=== PATIENT | female | born 1985 | race Two or more races ===

== ENCOUNTER 2020-05-01 15:20 | Emergency (ER) | payer OTHER ==
[~2020-05-01] VITALS: Ht 154.9 cm; Wt 86.2 kg
[2020-05-01 16:13] LABS: Eosinophils # (auto) 0.4 10 ^3/uL (0-0.8); Hematocrit 42.4 % (36.0-46.0); Monocytes # (auto) 0.4 10 ^3/uL (0-1.3)
[2020-05-01 16:14] LABS: Basophils # (auto) 0.2 10 ^3/uL (0-0.2); Basophils % (auto) 3.1 % (0.0-2.0); Eosinophils % (auto) 5.8 % (0.0-7.0); Hemoglobin 13.8 g/dL (12.2-16.2); Lymphocytes # (auto) 2.5 10 ^3/uL (0.4-5.4); Lymphocytes % (auto) 33.7 % (10.0-50.0); Mean Corpuscular Hemoglobin 26.1 pg (28.0-32.0); Mean Corpuscular Hgb Conc. 32.4 g/dL (32.0-36.0); Mean Corpuscular Volume 80.6 fL (80.0-100.0); Monocytes % (auto) 5.3 % (0.0-12.0); Neutrophils # (auto) 3.9 10 ^3/uL (1.6-8.6); Neutrophils % (auto) 52.1 % (37.0-80.0); Nucleated Red Blood Cells % 0.2 %; Red Blood Cells 5.26 10^6/uL (4.0-5.20); Red Cell Distribution Width 16.7 % (11.8-14.3); White Blood Cell 7.5 10^3/uL (4.4-10.8)
[2020-05-01 16:29] LABS: Albumin 4.2 g/dL (3.4-5.0); Calcium 9.1 mg/dL (8.5-10.1)
[2020-05-01 16:31] LABS: BUN/Creatinine Ratio 18.4
[2020-05-01 16:45] LABS: Bilirubin, Total 0.4 mg/dL (0.2-1.0); Total Protein 8.5 g/dL (6.4-8.2)
== END 2020-05-01 18:50 | disposition home or self-care (01) ==
LOC: EEVIPCON 15:20 → ER 15:20
DX: R10.31 Right lower quadrant pain (principal); R11.2 Nausea with vomiting, unspecified; J45.909 Unspecified asthma, uncomplicated; Z87.11 Personal history of peptic ulcer disease; Z86.2 Personal history of diseases of the blood and blood-forming organs and certain disorders involving the immune mechanism; Z98.890 Other specified postprocedural states; Z88.0 Allergy status to penicillin
CPT/HCPCS: 36415; 74176; 80053; 83690; 85025

== ENCOUNTER → 2021-09-23 | Outpatient (CLI) | payer OTHER ==
[2021-09-23 10:51] LABS: BUN/Creatinine Ratio 13.5; Calcium 8.3 mg/dL (8.5-10.1); Potassium 3.5 mmol/L (3.5-5.1)
== END | disposition home or self-care (01) ==
LOC: CT 09:10
DX: K44.9 Diaphragmatic hernia without obstruction or gangrene (principal); M47.814 Spondylosis without myelopathy or radiculopathy, thoracic region
CPT/HCPCS: 36415; 71275; 80048

== ENCOUNTER → 2021-11-13 | Day surgery (SDC) | payer OTHER ==
[~2021-11-13] VITALS: Ht 160 cm; Wt 104.3 kg
[~2021-11-13] MED LIST: LIDOCAINE VISCOUS 2% 15ML UD MT ONE; LIDOCAINE VISCOUS 2% 15ML UD ONE; MIDAZOLAM HCL 5 MG/ML-1ML VIAL IV ONE; MIDAZOLAM HCL 5 MG/ML-1ML VIAL ONE; diphenhdrAMINE HCL 50 MG/1 ML VL IV ONE; diphenhdrAMINE HCL 50 MG/1 ML VL ONE; fentaNYL CITRATE 100 MCG/2 ML VL IV ONE; fentaNYL CITRATE 100 MCG/2 ML VL ONE
[2021-11-13 14:10] VITALS: BP 111/68
== END | disposition home or self-care (01) ==
LOC: SUR 11:03
PROVIDERS: ATTEND Internal Medicine Gastroenterology
DX: R10.9 Unspecified abdominal pain (principal); K44.9 Diaphragmatic hernia without obstruction or gangrene; K29.50 Unspecified chronic gastritis without bleeding; K25.9 Gastric ulcer, unspecified as acute or chronic, without hemorrhage or perforation; K29.80 Duodenitis without bleeding; Z88.0 Allergy status to penicillin; Z20.822 Contact with and (suspected) exposure to COVID-19
CPT/HCPCS: 43239; 81025; 88305; 88342; J1200; J2250; J3010; J7030; 99152

== ENCOUNTER → 2024-04-28 | Outpatient (CLI) | payer OTHER ==
[~2024-04-28] MED LIST changes: +GASTROGRAFIN 30 ML SOL ONE; -LIDOCAINE VISCOUS 2% 15ML UD MT ONE; -LIDOCAINE VISCOUS 2% 15ML UD ONE; -MIDAZOLAM HCL 5 MG/ML-1ML VIAL IV ONE; -MIDAZOLAM HCL 5 MG/ML-1ML VIAL ONE; -diphenhdrAMINE HCL 50 MG/1 ML VL IV ONE; -diphenhdrAMINE HCL 50 MG/1 ML VL ONE; -fentaNYL CITRATE 100 MCG/2 ML VL IV ONE; -fentaNYL CITRATE 100 MCG/2 ML VL ONE
[2024-04-28 09:30] LABS: Sodium 140 mmol/L (136-145)
[2024-04-28 09:31] LABS: Anion Gap 7 (5-15); Calcium 9.4 mg/dL (8.7-10.4); Carbon Dioxide 25 mmol/L (20-31)
[2024-04-28 10:10] LABS: Blood Urea Nitrogen 8 mg/dL (9-23); Chloride 108 mmol/L (98-107); Glucose 111 mg/dL (74-106)
--- NOTE | 2024-04-28 10:11 | DVH ---
CT ABDOMEN WITHOUT CONTRAST CLINICAL HISTORY: RECURRENT HIATAL HERNIA TECHNIQUE: Multiple contiguous axial images of the abdomen without and with oral intravenous contras t. The images were reformatted degenerate coronal and sagittal reconstructions. All CT scans at this medical facility are performed using dose modulation techniques as appropriate t o a performed exam including the following:Automated exposure control was utilized; adjustment of the MA and/or KV according to patient size; and use of iterative reconstruction technique. Radiation Dose Information: CT Dose: CTDI volume is 25 mGy. Dose-length product is 1034 mGy*cm Comparison: 05/01/2020 FINDINGS: Evaluation of the abdomen and pelvis is limited without intravenous contrast. The liver, gallbladder, pancreas, kidneys, adrenal glands, and spleen appear within normal limits. There is no gross evidence of abdominal lymphadenopathy. There is no free fluid or free air. There is a small hiatal hernia. There is oral contrast in the stomach and in the small bowel loops. S tomach otherwise grossly appears within normal limits. The visualized small and large bowel loops de monstrate normal caliber and grossly appear within normal limits.. The abdominal aorta and IVC appear within normal limits. Lung bases are clear. There is no acute osseous abnormality. IMPRESSION: 1. There is no acute process in the abdomen. 2. Small hiatal hernia. HS:Y
--- NOTE | 2024-04-28 10:21 | DVH ---
Procedure: CT CHEST WITHOUT CONTRAST Reason for study/Clinical History: Recurrent hiatal hernia. Comparison Study: None. Exam Date: 04/28/2024 09:44 AM TECHNIQUE: Multidetector CT of the chest was performed from the lung apices to the upper abdomen with out the use of intravenous contract. Axial, coronal and sagittal multiplanar reformats were performed . Radiation Dose Information: CT Dose: CTDI volume is 28.85 mGy. Dose-length product is 998.92 mGy*cm The dose indicators for CT are the volume Computed Tomography (CT) Dose Index (CTDIvol) and the Dose Length Product (DLP), and are measured in units of mGy and mGy-cm, respectively. These indicators are not patient dose, but values generated from the CT scanner acquisition factors. The report includes radiation exposure data for exposures received during this examination. Radiation optimization: All CT scans at this facility use at least one of these dose optimization marleen hniques: automated exposure control mA and/or kV adjustment per patient size (includes targeted exam s where dose is matched to clinical indication) or iterative reconstruction. FINDINGS Lungs/Pleura: No focal consolidation. No suspicious appearing pulmonary nodule or mass. Is no pleural effusion or pneumothorax. Heart/Vascular Structures: Normal heart size. No pericardial effusion. Lymph Nodes: No thoracic lymphadenopathy. Musculoskeletal: No acute osseous abnormality. Upper abdomen: There is small hiatal hernia. Remaining visualized solid abdominal viscera grossly josephine ears unremarkable. IMPRESSION: 1. There is no acute intrathoracic abnormality. 2. Small hiatal hernia. HS:Y
== END | disposition home or self-care (01) ==
LOC: XYW 07:25 → EEVIPCON 07:30
DX: K44.9 Diaphragmatic hernia without obstruction or gangrene (principal)
CPT/HCPCS: 36415; 71250; 74150; 80048; Q9963